=== PATIENT | female | born 1960 | race Caucasian/White ===

== ENCOUNTER 2017-10-14 07:04 | Day surgery (SDC) | payer BC, SELFPAY ==
[2017-10-10 15:36] VITALS: BMI 25.3
[2017-10-14 07:28] VITALS: BP 135/86; PULSE 98; RESP 18; TEMP 36.9; O2SAT 97
[2017-10-14 08:06] VITALS: O2SAT 97
--- NOTE | 2017-10-14 08:23 | P.PCN_ITS ---
[facility] Procedure Note Procedure Note:: Colonoscopy Procedure Report: Colonoscopy with cold snare polypectomy Endoscopist: Joseph Petty II, MD Referring physician: Mukul Shepard MD Date of Procedure: October 14, 2017 Equipment: Olympus 180 variable stiffness pediatric colonoscope Sedation: MAC sedation Indication: Mrs. Sibley is a 57-year-old female who is here for follow-up screening/surveillance colonoscopy. Her last colonoscopy was 8-10 years ago and she does have a history of colon polyps. She does have a history of irritable bowel syndrome and has some bowel irregularity and occasional abdominal crampy discomfort. She reports no rectal bleeding, abdominal pain or weight loss. She does state that her maternal aunt had colon cancer. Procedure: Prior to the procedure, a history and physical exam was performed, and patient' s medications and allergies were reviewed. The risks, benefits and alternatives of the sedation and procedure were discussed with the patient. All questions were answered and informed consent was obtained. The patient was brought to the procedure room. Patient identification and proposed procedure were verified by the physician and the nurse. The patient was placed in a left lateral decubitus position and the scope was passed under direct vision. Throughout the procedure, the patient's blood pressure, pulse, and oxygen saturations were monitored continuously. The colonoscopy was accomplished without difficulty. The patient tolerated the procedure well. Findings: On digital rectal examination there was normal rectal tone. There were no external hemorrhoids. The colonoscope was introduced through the anal canal to the rectum and advanced to the cecum. The ileocecal valve and appendiceal orifice were identified. The scope was advanced a short distance into the ileum which appeared grossly normal. The scope was then withdrawn into the colon. The cecum, ascending, transverse, descending, sigmoid and rectum were grossly normal. There was a single 6 mm polyp in the descending colon removed cold snare polypectomy. There were no mucosal abnormalities identified. Upon retroflexion within the rectum there were grade 1 internal hemorrhoids. Impression: 1. Descending colon polyp 2. Grade 1 internal hemorrhoids Plan: I will follow up the polyp pathology and recommend repeat colonoscopy again in 5 years based upon the polyp histology. I would encourage dietary measures, probiotic and fiber bulk supplementation on a long-term daily maintenance basis.
[2017-10-14 08:25] VITALS: BP 111/71; PULSE 87; RESP 18; TEMP 36.8; O2SAT 98
[2017-10-14 08:35] VITALS: BP 112/73; PULSE 73; RESP 18; TEMP 36.8; O2SAT 97
[2017-10-14 08:45] VITALS: BP 127/80; PULSE 69; RESP 20; TEMP 36.8; O2SAT 97
[2017-10-14 09:05] VITALS: BP 118/66; PULSE 75; RESP 20; TEMP 36.8; O2SAT 99
--- NOTE | 2017-10-14 15:07 | P.PN_ITS ---
[facility] Anesthesia Checklist - Structural Data Admitted From: Home Planned Operative Procedure/s: colonoscopy Consent for Planned Operative Procedure(s) Verified: Yes - Airway Assessment C-Spine Mobility Assessed: Yes TMJ Mobility Assessed: Yes Dentition: Good Dentition - Neurological Assessment Level of Consciousness: Awake, Alert, Appropriate - Anesthesia Plan Anesthesia Risk discussed: Yes Anesthesia Plan: Verified ASA Class: II Anesthesia Type: MAC [facility] Anesthesia HX I have reviewed the patient's past medical history: Yes Medical History: Reports:: Anxiety, Hypertension Denies:: Diabetes Mellitus Type 1, Diabetes Mellitus Type 2, Internal Pacemaker, Lung Disease, Seizures Other Surgeries: No: Pacemaker Amputation: No Fractures: No *Family Hx:: Stroke, Asthma, Diabetes, Heart Attack, Hypertension, Coronary Artery Disease, Cancer
== END 2017-10-14 09:05 | disposition home or self-care (01) ==
LOC: OUTP 07:06
PROVIDERS: Family Provider Family Medicine; PCP Family Medicine; Visit Provider Internal Medicine Gastroenterology
PROC: 0DJD8ZZ Inspection of Lower Intestinal Tract, Via Natural or Artificial Opening Endoscopic (ICD-10-PCS; CPT 45378; principal; 2017-10-14 08:00)
DX: Z12.11 Encounter for screening for malignant neoplasm of colon (principal); K63.5 Polyp of colon; K64.0 First degree hemorrhoids; Z86.010 Personal history of colon polyps
CPT/HCPCS: 45385

== ENCOUNTER → 2018-02-03 10:53 | Outpatient (CLI) | payer BC, SELFPAY ==
--- NOTE | 2018-02-03 10:55 | MM_ITS ---
MM Dig screening mamm BI w/CAD ORDERING PHYSICIAN : Vidal Zarate MD PATIENT AGE: 58 years GENDER: Female COMPARISON: January 2017 in July 2015. Also 2014 exam INDICATION: ITS.REASON: screening mammogram TECHNIQUE: Standard CC and MLO images were obtained. R2 CAD reviewed. FINDINGS: . Moderate breast density RIGHT BREAST: Density at superior breast labeled A appears stable since 2011 MLO view . I suspect this resides at the lateral breast on cc view is been seen dating back to 2013 On the cc view there is a area of density labeled B on which is slightly more evident and slightly more prominent than on prior 2016 & 2013. This is at the the deep central breast just medial to mid axis. This measures 12 mm size.. A few scattered faint calcifications seen here as well. Since it is slightly more evident I would suggest patient return for spot views & ultrasound of the breast to further evaluate this and other features mentioned. Vague low-density area labeled C just posterior to this measures 10 mm size. I see there is scattered small cystic areas in the right breast on the 2015 study this I suspect there may be some additional cyst of accounting for these slightly more evident areas today LEFT BREAST:Stable no new findings. . Relative density at the inferior retroareolar region is stable with no new findings. ----IMPRESSION: 1. Right breast. Scattered areas of density at the right breast, some of which more evident than previous studies. Recommend additional spot views and ultrasound Right Breast to further evaluate 2. Left breast stable with no new areas of concern BI-RADS Category: 0 Need Additional Imaging Evaluaiton. RECOMMENDED FOLLOW-UP: IMM - IMMEDIATE FOLLOW-UP RECOMMENDED Spot views right breast most evident important more evident density labeled B and C with ultrasound right breast (A letter has been sent to the patient regarding results of the study.)
== END ==
PROVIDERS: Family Provider Family Medicine; PCP Family Medicine; Visit Provider Obstetrics & Gynecology
DX: Z12.31 Encounter for screening mammogram for malignant neoplasm of breast (principal)
CPT/HCPCS: 77067

== ENCOUNTER → 2018-02-13 12:50 | Outpatient (CLI) | payer BC, SELFPAY ==
--- NOTE | 2018-02-13 | US_ITS ---
MM Dig mamm DX unilat RT CAD, US breast RT complete INDICATION: Follow-up abnormal mammogram ORDERING PHYSICIAN: Vidal Zarate MD PATIENT AGE: 58 years COMPARISON: 02/03/2018, 01/27/2017, 01/26/2016, 08/08/2015, 05/23/2014 TECHNIQUE: Problem solving views performed along with right breast ultrasound. FINDINGS: There is average to dense fibroglandular tissue. Asymmetric density is noted in the upper and medial aspect of the right breast. Show some persistent asymmetric density in the upper inner aspect of the right breast. Focal spot compression view however shows this area to appear to compress out as fibroglandular tissue. Also this appears to been present dating back to 05/23/2014 and a somewhat more prominent appearance on the most recent exams probably related to fibroglandular tissue. Right breast ultrasound: COMPARISON is made to 01/26/2016. There are some dilated ducts at 7:00. Small nodes are present in the axilla. No discrete solid or cystic lesion evident. IMPRESSION: Asymmetric density in the upper inner right breast felt to be related to fibroglandular tissue. No suspicious mass apparent. Recommend 6 month mammographic and sonographic follow-up of the right breast BI-RADS Category: 3 Benign Finding Short Term Follow-up RECOMMENDED FOLLOW-UP: 6M - 6 MONTH FOLLOW-UP (A letter has been sent to the patient regarding results of the study.)
== END ==
PROVIDERS: Family Provider Family Medicine; PCP Family Medicine; Visit Provider Obstetrics & Gynecology
DX: R92.8 Other abnormal and inconclusive findings on diagnostic imaging of breast (principal)
CPT/HCPCS: 76641; 77065

== ENCOUNTER → 2019-01-22 14:50 | Outpatient (CLI) | payer OTHER, SELFPAY ==
--- NOTE | 2019-01-22 14:57 | XR_ITS ---
XR hand LT min 3V HISTORY: Pain laceration the third fourth and fifth fingers ITS.REASON: LT HAND ABRASION,INFECTION OF THE SKIN ORDERING PHYSICIAN: Radha Vazquez APRN PATIENT AGE: 59 years COMPARISON: None FINDINGS: No fracture or dislocation is evident. 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 No radio opaque foreign body. IMPRESSION: No acute finding
== END ==
PROVIDERS: PCP Family Medicine; Visit Provider Nurse Practitioner
DX: S60.512A Abrasion of left hand, initial encounter (principal); L08.9 Local infection of the skin and subcutaneous tissue, unspecified
CPT/HCPCS: 73130

== ENCOUNTER → 2019-02-06 08:21 | Outpatient (CLI) | payer OTHER, SELFPAY ==
--- NOTE | 2019-02-06 08:22 | MM_ITS ---
MM Dig screening mamm BI w/CAD CAD Screening COMPARISON: Diagnostic right mammogram with CAD 02/13/2018 and digital bilateral mammograms with CAD 02/03/2018 INDICATION: There is no personal or family history of breast cancer. There has been a previous biopsy right breast for benign disease. TECHNIQUE: Standard CC and MLO images were obtained. R2 CAD reviewed. FINDINGS: Scattered diffuse fibroglandular densities are seen throughout both breasts. The possible asymmetric density seen on the previous right mammogram February 2018 is less prominent on today's study and likely is asymmetric glandular tissue. There are no suspicious microcalcifications. IMPRESSION: Moderate diffuse breast density with no suspicious lesion seen BI-RADS Category: 1 Negative RECOMMENDED FOLLOW-UP: 1YR - 1 YEAR FOLLOW-UP (A letter has been sent to the patient regarding results of the study.)
== END ==
PROVIDERS: PCP Family Medicine; Visit Provider Obstetrics & Gynecology
DX: Z12.31 Encounter for screening mammogram for malignant neoplasm of breast (principal)
CPT/HCPCS: 77067

== ENCOUNTER → 2020-01-22 15:11 | Outpatient (CLI) | payer OTHER, SELFPAY ==
[2020-01-22 20:06] LABS: Coronavirus 19 IgG Antibody Negative (Negative); Coronavirus 19 IgM Antibody Negative (Negative)
== END ==
PROVIDERS: Visit Provider Obstetrics & Gynecology
DX: Z03.818 Encounter for observation for suspected exposure to other biological agents ruled out (principal)
CPT/HCPCS: 36415; 86328

== ENCOUNTER → 2020-02-15 08:57 | Outpatient (CLI) | payer BC, SELFPAY ==
--- NOTE | 2020-02-15 08:57 | MM_ITS ---
PROCEDURE: MM DIG SCREENING MAMM BI W/CAD Digital Breast Tomosynthesis Included CLINICAL INDICATION: Routine Screening Mammogram There is no personal or family history of breast cancer. The patient currently is on estrogen. COMPARISON: MG SCBI MM Dig screening mamm BI w/CAD from 02/03/2018 MG DXRT MM Dig mamm DX unilat RT CAD from 02/13/2018 MG DIG MAMM-SCREEN CHETAN from 02/06/2019 TECHNIQUE: Standard CC and MLO images and 3D Tomosynthesis was obtained. R2 CAD reviewed. FINDINGS: Moderate diffuse fibroglandular densities are seen throughout both breast. Glandular elements are slightly more prominent upper outer quadrant right breast as noted previously. There is no new or suspicious lesion in either breast and no suspicious microcalcifications. IMPRESSION: Moderate diffuse breast density with no suspicious lesions seen BI-RAD Category: 1 Negative FOLLOW-UP: 1YR 1 Year Follow-up (A letter has been sent to the patient regarding results of the study.) Dictated Dr. Braydon Smith MD 02/15/2020 14:21 Dr. Braydon Kirkland MD in [place] 02/15/2020 14:21
== END ==
PROVIDERS: PCP Family Medicine; Visit Provider Obstetrics & Gynecology
DX: Z12.31 Encounter for screening mammogram for malignant neoplasm of breast (principal)
CPT/HCPCS: 77063; 77067

== ENCOUNTER → 2021-02-16 08:02 | Outpatient (CLI) | payer BC, SELFPAY ==
--- NOTE | 2021-02-16 08:02 | MM_ITS ---
PROCEDURE: MM DIG SCREENING MAMM BI W/CAD Digital Breast Tomosynthesis Included CLINICAL INDICATION: screening COMPARISON: MG DXRT MM Dig mamm DX unilat RT CAD from 02/13/2018 MG MM DIG SCREENING MAMM BI W/CAD from 02/06/2019 MG MM DIG SCREENING MAMM BI W/CAD from 02/15/2020 TECHNIQUE: Standard CC and MLO images and 3D Tomosynthesis was obtained. R2 CAD reviewed. FINDINGS: Average fibroglandular tissue. Faint cluster of calcification noted in the outer left breast and medial left breast. Spot compression Mag views suggested. Also suggest straight mL view. Nodular density is present in the central aspect of the left breast central 1/3 in the retroareolar region measuring 4 mm. Compression view and ultrasound suggested. The right breast has an unremarkable appearance. IMPRESSION: Indeterminate left breast nodule and calcifications. Additional images recommended BI-RAD Category: 0 Need Additional Imaging Evaluation FOLLOW-UP: IMM Immediate Follow-up Recommended (A letter has been sent to the patient regarding results of the study.) Dictated by: Nader Nicholson MD 02/24/2021 18:07 Nader Nicholson MD in [place] 02/24/2021 18:07
== END ==
PROVIDERS: PCP Family Medicine; Visit Provider Obstetrics & Gynecology
DX: Z12.31 Encounter for screening mammogram for malignant neoplasm of breast (principal)
CPT/HCPCS: 77063; 77067

== ENCOUNTER → 2021-03-10 14:32 | Outpatient (CLI) | payer BC, SELFPAY ==
--- NOTE | 2021-03-10 14:32 | US_ITS ---
PROCEDURE: MM DIG MAMM DX UNILAT LT CAD Digital Breast Tomosynthesis Included Left breast ultrasound complete CLINICAL INDICATION: Left breast nodule COMPARISON: MG MM DIG SCREENING MAMM BI W/CAD from 02/06/2019 MG MM DIG SCREENING MAMM BI W/CAD from 02/15/2020 MG MM DIG SCREENING MAMM BI W/CAD from 02/16/2021 US US BREAST LT COMPLETE from 03/10/2021 TECHNIQUE: Standard CC and MLO images and 3D Tomosynthesis was obtained. R2 CAD reviewed. FINDINGS: A cluster of indeterminate calcifications are present in the lower inner aspect of the left breast. Biopsy suggested by the stereotactic approach.. The cluster of calcifications in the outer aspect of the left breast appear probably benign and six-month follow-up is suggested. The nodular density in the central aspect of the left breast has a benign appearance on the spot compression views measuring approximately 4 mm. Left breast ultrasound at 2 o'clock there is a 3 mm hypoechoic nodule which could correspond to the mammographic abnormality. Probably benign. At 3 o'clock a 2 mm hypoechoic nodule. No suspicious sonographic nodules apparent IMPRESSION: Suspicious cluster of calcifications in the lower inner left breast. Suggest stereotactic biopsy. Probably benign calcifications laterally and probably benign nodule central aspect of the left breast. Recommend six-month follow-up. BI-RAD Category: 4 Suspicious Abnormality-Biopsy Considered FOLLOW-UP: BIO Biopsy Recommended (A letter has been sent to the patient regarding results of the study.) Dictated by: Nader Nicholson MD 03/18/2021 14:51 Nader Nicholson MD in [place] 03/18/2021 14:51
== END ==
PROVIDERS: PCP Family Medicine; Visit Provider Obstetrics & Gynecology
DX: R92.8 Other abnormal and inconclusive findings on diagnostic imaging of breast (principal)
CPT/HCPCS: 76641; 77061; 77065; G0279

== ENCOUNTER → 2021-03-31 09:39 | Outpatient (CLI) | payer BC, SELFPAY ==
--- NOTE | 2021-03-31 09:39 | MM_ITS ---
PROCEDURE: MM STEREOTACTIC LOC LT MM CLIP PLACEMENT MM SURGICAL SPECIMEN 1. MM SURGICAL SPECIMEN 2. CLINICAL INDICATION: abnormal mamm Suspicious calcifications left breast lower inner aspect TECHNIQUE: Informed consent was obtained and time-out procedure performed. The patient was given 1 mg of Xanax, Lortab 5 mg, and analgesia and minor sedation. The patient was placed on the stereotactic table and the abnormality was localized in the most appropriate projection from the superior approach. The breast was prepped in the routine manner, with sterile prep and the overlying skin anesthetized. A 3 to 4 mm skin incision was performed and the 9 gauge sorus vacuum-assisted core biopsy needle was advanced to the region of the calcification. Pre- and post fire images were obtained. After adequate positioning relative to the calcifications was ensured, multiple biopsies were obtained in the region of the calcifications specifically. Calcifications however were not readily apparent on the specimen radiograph. Following this the patient was repositioned and calcifications were localized from the inferior approach and similar technique performed for biopsy. Calcifications were present on this specimen radiograph. The core biopsies obtained were sent for specimen mammography. After the calcifications were indeed identified on the specimen mammogram, the procedure was terminated. The patient tolerated the procedure well without complications. Routine follow-up phone call to patient is to be performed as well. A tiny titanium nonferromagnetic MicroMark was positioned through the mammotome needle from both the superior pro Walters the inferior broach. Into the biopsy site. Pathology: Inferior approach: Benign breast parenchyma with fibrocystic changes and associated microcalcifications. Negative for atypia, DCIS or invasive carcinoma. Pathology: Superior approach: Proliferative fibrocystic changes with ductal hyperplasia and fat necrosis with rare microcalcifications. Negative for in situ and invasive malignancy IMPRESSION: Uneventful stereotactic directed biopsy of the left breast with microcalcifications biopsied negative for atypia or malignancy. SPECIMEN RADIOGRAPH: Superior pro chin specimen radiograph did not demonstrate any definite microcalcifications. Specimen radiograph #2. From inferior approach demonstrated microcalcifications of interest. IMPRESSION: Successful removal of described breast calcifications. BREAST MAMMOGRAM: Compared to the prior study, the previously noted calcification in the lower inner left breast have been removed. A small MicroMark clip was inserted into the region of the calcifications. There is evidence of soft tissue changes in the region of the biopsy was soft tissue gas and edema. 1. Adequate placement of the MicroMark clip postbiopsy. 2. Postbiopsy changes within the breast. 3. Suggest six-month mammographic follow-up per routine protocol Dictated by: Nader Nicholson MD 04/03/2021 09:28 Nader Nicholson MD in [place] 04/03/2021 09:28
== END ==
PROVIDERS: PCP Family Medicine; Visit Provider Obstetrics & Gynecology
DX: R92.8 Other abnormal and inconclusive findings on diagnostic imaging of breast (principal)
CPT/HCPCS: 19081; 76098; 77065

== ENCOUNTER → 2021-07-29 10:35 | Outpatient (CLI) | payer BC, SELFPAY | PROVIDERS: Visit Provider Nurse Practitioner | DX: U07.1 COVID-19 (principal) | CPT/HCPCS: C9803; U0003; U0005 ==

== ENCOUNTER → 2022-02-17 08:18 | Outpatient (CLI) | payer BC, SELFPAY ==
--- NOTE | 2022-02-17 08:19 | MM_ITS ---
PROCEDURE INFORMATION: Exam: MG Bilateral Screening 3D Mammography Exam date and time: 02/17/2022 8:33 AM Age: 62 years old Clinical indication: Screening mammogram. TECHNIQUE: Imaging protocol: Bilateral Screening tomosynthesis and 2D mammography including computer-aided detection (CAD) when performed. COMPARISON: 1. MG MM SURGICAL SPECIMEN LT 03/31/2021 11:03 AM 2. MG DMSB DIGITAL MAMM-SCREEN BILATERAL 07/06/2010 2:44 PM 3. MG DIGMAMMS MAMMOGRAM SCREEN-PATIENT [employer] N/C 01/16/2008 3:18 PM FINDINGS: MAMMOGRAPHY: Breast composition: The breast is heterogeneously dense, which may obscure small masses. Mass: None. Architectural distortion: No new or suspicious architectural distortion. Calcifications: No new or suspicious calcifications are present Asymmetric density: No new or suspicious asymmetric density is present Skin thickening: None. Axillary adenopathy: None. IMPRESSION: No mammographic evidence of malignancy. Recommend annual screening mammography unless otherwise clinically indicated. ASSESSMENT: BI-RADS category 1: Negative
== END ==
PROVIDERS: PCP Obstetrics & Gynecology; Visit Provider Obstetrics & Gynecology
DX: Z12.31 Encounter for screening mammogram for malignant neoplasm of breast (principal)
CPT/HCPCS: 77063; 77067

== ENCOUNTER → 2022-12-07 10:45 | Outpatient (POV) | payer BC, SELFPAY | PROVIDERS: Visit Provider Dermatology | DX: Z00.00 Encounter for general adult medical examination without abnormal findings (principal) ==

== ENCOUNTER → 2023-04-27 12:38 | Outpatient (CLI) | payer OTHER, SELFPAY | PROVIDERS: PCP Family Medicine; Visit Provider Internal Medicine Gastroenterology | DX: R19.7 Diarrhea, unspecified (principal); R14.0 Abdominal distension (gaseous) ==

== ENCOUNTER 2023-08-18 09:14 | Outpatient (CLI) | payer MEDICARE, SELFPAY ==
--- NOTE | 2023-08-18 09:21 | XR_ITS ---
FINAL REPORT CLINICAL HISTORY: LT KNEE PAIN FINDINGS: LEFT KNEE: Three views of the left knee were obtained. There is no acute fracture or dislocation. Visualized joint spaces are normally aligned. There is no joint effusion. Soft tissues are unremarkable. IMPRESSION: No acute bony abnormality. Reviewed, Interpreted and Dictated by Vladimir Reeves III, MD Transcribed by Ivy Newman Authenticated and [facility]
== END 2023-08-18 23:59 ==
LOC: RAD 09:16
PROVIDERS: PCP Family Medicine; Visit Provider Nurse Practitioner
DX: M25.562 Pain in left knee (principal)
CPT/HCPCS: 73562

== ENCOUNTER 2023-09-22 16:01 | Outpatient (CLI) | payer MEDICARE, SELFPAY ==
--- NOTE | 2023-09-22 16:04 | MR_ITS ---
FINAL REPORT CLINICAL HISTORY: KNEE PAIN. FELL ON KNEE FEB 7TH. LATERAL SIDED KNEE PAIN AND PAIN UNDER PATELLA. FINDINGS: Multiplanar MR imaging of the left knee was performed without contrast. The medial and lateral menisci are intact without evidence of meniscal tear. The anterior and posterior cruciate ligaments are intact. The medial collateral ligament and lateral ligamentous complex are intact. The patellar and quadriceps tendons are intact. There is no evidence of fracture. There is moderate patellar chondromalacia. There is prepatellar fluid which may represent a prepatellar hematoma or bursitis. No significant joint effusion is seen. The musculature is intact. There is a serpiginous structure medial to the distal femur measuring at least 5 cm in length. Differential diagnosis includes AVM or venous varicosities. IMPRESSION: Prepatellar fluid which may represent a prepatellar hematoma or bursitis. Serpiginous structure medial to the distal femur with differential including AVM or venous varicosities. Reviewed, Interpreted and Dictated by Vladimir Reeves III, MD Transcribed by Ivy Newman Authenticated and [facility]
== END 2023-09-22 23:59 ==
LOC: RAD 16:01
PROVIDERS: PCP Nurse Practitioner; Visit Provider Nurse Practitioner
DX: M25.562 Pain in left knee (principal)
CPT/HCPCS: 73721

== ENCOUNTER 2023-11-30 16:59 | Outpatient (CLI) | payer MEDICARE, SELFPAY ==
--- NOTE | 2023-11-30 17:03 | MM_ITS ---
PROCEDURE INFORMATION: Exam: MG Bilateral Screening 3D Mammography Exam date and time: 11/30/2023 4:49 PM Age: 63 years old Clinical indication: Screening mammogram TECHNIQUE: Imaging protocol: Bilateral Screening tomosynthesis and 2D mammography including computer-aided detection (CAD) when performed. COMPARISON: 1. MG MM DIG SCREENING MAMM BI W/CAD 02/17/2022 8:33 AM 2. MG MM CLIP PLACEMENT LT 03/31/2021 12:30 PM 3. MG MM SURGICAL SPECIMEN LT 03/31/2021 11:03 AM 4. MG DMSB DIGITAL MAMM-SCREEN BILATERAL 07/06/2010 2:44 PM FINDINGS: MAMMOGRAPHY: Breast composition: The breast is heterogeneously dense, which may obscure small masses. Mass: None. Architectural distortion: No new or suspicious architectural distortion. Calcifications: No new or suspicious calcifications are present Asymmetric density: No new or suspicious asymmetric density is present Skin thickening: None. Axillary adenopathy: None. IMPRESSION: No mammographic evidence of malignancy. Recommend annual screening mammography unless otherwise clinically indicated. ASSESSMENT: BI-RADS category 1: Negative.
== END 2023-11-30 23:59 | disposition home or self-care (01) ==
LOC: RAD 16:59
PROVIDERS: PCP Nurse Practitioner; Visit Provider Nurse Practitioner
DX: Z12.31 Encounter for screening mammogram for malignant neoplasm of breast (principal)
CPT/HCPCS: 77063; 77067

== ENCOUNTER 2023-12-13 17:00 | Outpatient (RCR) | payer OTHER, SELFPAY | END 2023-12-13 18:00 | disposition home or self-care (01) | LOC: PT 17:00 | PROVIDERS: Visit Provider Orthopaedic Surgery | DX: M25.562 Pain in left knee (principal) | CPT/HCPCS: 97110; 97163; 97530 ==

== ENCOUNTER 2024-01-04 09:16 | Outpatient (CLI) | payer MEDICARE, SELFPAY ==
--- NOTE | 2024-01-04 09:17 | CT_ITS ---
APPROVED REPORT Blood Bank Laboratory Technologist: CLINICAL INDICATION Chest Pain TECHNIQUE Image Acquisition: A 128 slice MDCT scanner ([employer] View) was used for data acquisition. A noncontrast coronary calcium scan was performed. A CT attenuation threshold of 130 Hounsfield units (HU) was used for the detection of calcium in contiguous voxels of 1 sq mm in area to be counted as individual lesions. Bolus tracking in the ascending aorta with a threshold of 180 HU was performed. Immediately afterwards, ECG synchronized cardiac CT was then performed from the cardiac base to apex using retrospective gating with ECG tube current modulation. A total of 85 mL of Isovue 370 mg/mL contrast medium was administered at 5 mL/sec followed by a saline flush using a biphasic injection protocol. A tube voltage of 120 KVp was used. The patient received the following medications prior to the cardiac CT. 50 mg of oral metoprolol 15 mg of oral ivabradine 0.8 mg of sublingual nitroglycerin The average heart rate at the time of acquisition was 51 bpm and regular. Image Reconstruction Transaxial images were reconstructed at 0.67 mm slide thickness. Data was reviewed interactively on an advanced workstation capable of 2 and 3-dimensional displays in all conventional reconstruction formats, including multiplanar reformations, maximum intensity projections, curved multiplanar reformations, and volume rendered reconstructions. When applicable, selected routine images describing the relevant coronary anatomy and pathology were saved and sent to PACS. Complications None Technical Quality Overall image quality was good. Coronary artery opacification was adequate. Total DLP (Dose-Length Product) is 1616.2 mGy-cm. The reported value represents the total of one or more individual components during the CT acquisition of this date and at this time, and as such, the same value may appear in more than one CT report depending on the interpreting/reporting physicians. COMPARISON None FINDINGS CT Coronary Calcium Scoring LMA (Left Main Artery) = 0 LAD (Left Anterior Descending) = 0 LCX (Left Coronary Circumflex) = 0 RCA (Right Coronary Artery) = 0 Total Calcium Score = 0 using the AJ-130 method. The interpretation of the calcium heart score is based on the following continuum*: 0 = no calcified plaque detected (risk of coronary artery disease is very low ??? less than 5%) 1-10 = calcium detected in extremely minimal levels (risk of coronary diseases is still low ??? less than 10%) 11-100 = mild levels of plaque detected with certainty (mild or minimal narrowing of heart arteries is likely) 101-400 = definite,at least moderate levels of plaque detected (relatively high risk of a heart attack within 3-5 years) >401-999 = extensive levels of plaque detected (high risk of heart attack, high levels of vascular disease are present, high likelihood of at least one significant coronary narrowing) *The calcium heart score quantifies the burden of coronary calcification/plaque in the coronary arteries. The calcium heart score is not able to evaluate the presence or burden of non-calcified (i.e. soft) plaque. There is no identifiable calcification in the aortic valve, mitral annulus or mitral valve, pericardium, or myocardium. Coronary CT Angiography The coronary arterial system is right dominant. Quantitative Stenosis Grading: Left Main (LM): The left main originates normally from the left sinus of Valsalva. The LM bifurcates into the left anterior descending artery and left circumflex artery. The LM is patent with no evidence of atherosclerosis. Left Anterior Descending (LAD) and Diagonal Branches: The LAD gives off 2 diagonal branch(es). The LAD and its branches are patent with no evidence of atherosclerosis. There is no evidence of LAD-myocardial bridge. Left Circumflex (LCX) and Obtuse Marginals (OM): The LCX gives off 2 Obtuse Marginal (OM) branch(es). The LCX and its branches are patent with no evidence of atherosclerosis. Right Coronary Artery (RCA): The RCA originates normally from the right sinus of Valsalva. The RCA gives off a posterior descending artery (PDA) and posterolateral (PL) branches. The RCA and its branches are patent with no evidence of atherosclerosis. Non-Coronary Cardiac Findings: Analysis of the left ventricular (LV) structure and function was performed after 3-D reconstruction of the LV from axial images, with user-corrected automatic contouring for assessment of LV volumes and user-defined reconstruction from oblique planes for measurement of 3-D cardiac structure and function. -The left ventricle systolic function is normal. -There is no left atrial appendage filling defect. Two right pulmonary veins and two left pulmonary veins drain normally into the left atrium. -No pericardial thickening or calcification. -Central and branch pulmonary arteries in the [id number] are unremarkable. -Thoracic aorta within the visualized thoracic aortic-branches in the [id number] is unremarkable. Extracardiac Structures Calcified mediastinal granulomas are incidentally noted. Clinical correlation with recent or new CT chest is recommended. IMPRESSION -Absence of coronary calcification with an Agatston score = 0 using the AJ-130 method. -No evidence of significant flow-limiting atherosclerosis of the coronary arteries. -No evidence of coronary anomalies or myocardial bridges. -CAD-RADS 0. Management recommendations per ACC/AHA guidelines*, as clinically appropriate. -Calcified mediastinal granulomas are incidentally noted. Clinical correlation with recent or new CT chest is recommended. *Recommendations: CAD RADS 0: Reassurance. Consider non-atherosclerotic causes of chest pain. CAD RADS 1: Consider non-atherosclerotic causes of chest pain. Consider preventive therapy and risk factor modification. CAD RADS 2: Consider non-atherosclerotic causes of chest pain. Consider preventive therapy and risk factor modification, particularly for patients with nonobstructive plaque in multiple segments. CAD RADS 3: Consider further functional testing. Consider symptom-guided anti-ischemic and preventive pharmacotherapy as well as risk factor modification per published guideline statements. CAD RADS 4A: Consider further functional testing or invasive coronary angiography with revascularization per published guideline statements. Consider symptom-guided anti-ischemic and preventive pharmacotherapy as well as risk factor modification per published guideline statements. CAD RADS 4B: Invasive coronary angiography recommended with revascularization per published guideline statements. Consider symptom-guided anti-ischemic and preventive pharmacotherapy as well as risk factor modification per published guideline statements. CAD RADS 5: Consider invasive angiography and/or viability assessment with revascularization per published guideline statements. Consider symptom-guided anti-ischemic and preventive pharmacotherapy as well as risk factor modification per published guideline statements. CRITICAL RESULT None COMMUNICATION Per this written report The coronary and cardiac findings of this CCTA were reviewed, reported, and signed by Scotty Manuel MD (Logistics Center Manager) Conclusion Electronically signed by : Maryam Manuel MD 01/09/2024 13:02:57
[2024-01-04 09:34] VITALS: BMI 25.7
[2024-01-04] MEDS: METOPROLOL TARTRATE 50MG TABLET PO (09:45)
[2024-01-04] MEDS: IVABRADINE HCL 7.5MG TABLET PO (09:45)
[2024-01-04 09:52] LABS: Chloride 103 mmol/L (98-107); Sodium 138 mmol/L (136-145)
[2024-01-04 09:53] LABS: Potassium 4.1 mmoL/L (3.5-5.1)
[2024-01-04 09:56] LABS: Anion Gap 11.1 mEq/L (5-15); Blood Urea Nitrogen 15 mg/dl (7-17); Calcium 9.4 mg/dl (8.4-10.2); Carbon Dioxide 28 mmol/L (22.0-30.0); Creatinine Clearance Estimated 58 mL/min (50-200); Estimated Glomerular Filt Rate 72 ml/min (>60); GFR (African American) 87 ML/MIN (>60); Glucose 109 mg/dl (74-100)
[2024-01-04 10:35] VITALS: BP 138/77; PULSE 58; RESP 18; O2SAT 100
[2024-01-04] MEDS: NITROGLYCERIN 0.4MG SL TABLET SL (10:36)
[2024-01-04 10:38] VITALS: BP 120/72; PULSE 57; RESP 18; O2SAT 100
[2024-01-04 10:41] VITALS: BP 116/77; PULSE 56; RESP 18; O2SAT 100
[2024-01-04 10:44] VITALS: BP 120/70; PULSE 57; RESP 18; O2SAT 100
[2024-01-04 10:47] VITALS: BP 122/70; PULSE 55; RESP 18; O2SAT 100
[2024-01-04] MEDS: SODIUM CHLORIDE 0.9% 10ML SYR (RAD ONLY) 10 ML IV (10:53)
[2024-01-04] MEDS: 0.9 % SODIUM CHLORIDE 50 ML VIAL IV (10:53)
[2024-01-04] MEDS: IOPAMIDOL-370 (76%);100ML BOTTLE 85 ML IV (10:54)
== END 2024-01-04 11:06 | disposition home or self-care (01) ==
PROVIDERS: PCP Nurse Practitioner; Visit Provider Nurse Practitioner Family
DX: R00.0 Tachycardia, unspecified (principal); R00.2 Palpitations; R06.09 Other forms of dyspnea; R07.9 Chest pain, unspecified; R94.31 Abnormal electrocardiogram [ECG] [EKG]
CPT/HCPCS: 75574; 80048; 93225; 93227; Q9967

== ENCOUNTER 2024-01-06 13:20 | Outpatient (CLI) | payer MEDICARE, SELFPAY ==
--- OUTSIDE RECORDS SUMMARY | 2024-01-06 13:24 | XMS_ITS | Clinical Summary ---
Author Name Unknown Address [address] [place] [address] [place] [address] Phone Organization [facility] [place] [facility] Address [address] [address] Phone Care Team Providers Care Athletic Shoe Designer Name Role Phone Vicenta Rizo PA-C Unavailable [phone] SALO ESCAMILLA MD Unavailable [phone] Reason for Visit and Chief Complaint Physician Specified Problems Includes: Problems addressed during this encounter and other active Problems Current Visit Onset Date Resolved Date Provider Ashkan tang Status Joint Pain in the Left Knee 10/25/2023 Tony Anderson MD Active Last Documented On 10:24AM ; [facility] Plan of Treatment Fall Risk Assessment: This patient has been identified as a fall risk. Balance/gait along with postural blood pressure, vision and home fall hazards have been assessed. Medications have been reviewed, and recommendations made with regard to contributing factors for future falls. Plan of care: Consideration of vitamin D supplementation along with balance and strength training with consideration for formal physical therapy has been discussed with the patient. - Last Documented On 10/25/2023 10:41AM ; [facility] [place] MRI SHOWS PREPATELLAR BURSITIS POSTTRAUMATIC OTHERWISE UNREMARKABLE RECOMMEND IONTOPHORESIS WITH PT AND STRENGTHENING PROGRAM FOR HIP CORE AND QUAD LOW-IMPACT WE WILL SEE HER BACK IN 6 WEEKS FOR FOLLOW UP - Last Documented On 10/25/2023 10:41AM ; [facility] [facility] Assessments Includes: Assessments from this encounter No Assessments Recorded Medical Equipment - Implanted Devices Includes: Current Devices No Medical Equipment Recorded Medications Includes: Medications discussed during this encounter and other current Medications New / Renewed during this visit Tony Anderson MD on 10/25/2023 dexAMETHasone Sodium Phospha te 4 MG/ML Injection Solution Provider: Tony Anderson MD 30 day supply: 30 mL, 0 refills Diagnosis: use as directed- to be used by physical therapy Pharmacy: [id number] [phone] , [place], [address] - Last Documented On 4 10:42AM By Tony Anderson ; [facility] Current Medications (continue as prescribed) Levothyroxine Sodium 100 MCG Oral Capsule 10/25/2023 Provider: Diagnosis: Last Documented On 4 10:25AM By Leny Valle ; [facility] [facility] Medications Administered Includes: Administered Medications from this encounter No Administered Medications Recorded Results Includes: Results discussed during this encounter No Results Recorded For Specified Dates History of Present Illness Includes: History of Present Illness from this encounter LUZ MARINA Sibley is a 63 year old female. - Symptoms grinding, locking, popping. - Allergy list reviewed - Problem list reviewed - Medication list reviewed - Previous history of new onset pain 08/17/2023 Injury is not work related or an automotive accident - Patient pain level from 1-10: 5 pain better: ice, rest pain worse: steps, squatting, prolonged bending of the knee, and pressure on the knee ? Yes, previous treatment. carolina perla Medications used for this condition: 2 MONTHS AGO TRAUMATIC FALL ANTERIOR ASPECT OF THE LEFT KNEE WITH SIGNIFICANT SWELLING AND PAIN PATIENT IS WAS RESTED AND [id number] MEDICATIONS BUT SOME IMPROVEMENT BUT NOT COMPLETE STILL HAS TROUBLE WITH ANTERIOR KNEE PAIN MRI WAS DONE FOR FURTHER EVALUATION SHE IS REFERRED TO US FOR FURTHER TREATMENT Social History Description Last Updated Caffeine use 10/25/2023 Last Documented On 4 10:41AM ; [facility] [facility] Exercising regularly 10/25/2023 Last Documented On 4 10:41AM ; [facility] [facility] No recent change in diet 10/25/2023 Last Documented On 4 10:41AM ; [facility] Not a current smoker. 10/25/2023 Last Documented On 4 10:41AM ; [facility] [facility] Not using alcohol former 10/25/2023 Last Documented On 4 10:41AM ; [facility] [facility] Not using drugs 10/25/2023 Last Documented On 4 10:41AM ; [facility] Smoking Status Unknown Procedures and Surgical History Includes: Procedures from this encounter Procedures Code Diagnosis Performing Provider Service L ocation Service Date an X-ray was performed 76496 Last Documented On 4 10:28AM ; [facility] an MRI was performed [id number] Last Documented On 4 10:28AM ; [facility] [facility] brace Last Documented On 4 10:28AM ; [facility] Surgical History Last Updated History of hysterectomy 10/25/2023 Last Documented On 4 10:41AM ; [facility] Medical History Includes: Medical History addressed during this encounter Description Last Updated History of Heartburn / Acid Reflux 10/24 Last Documented On 4 10:41AM ; [facility] History of Hypertension 10/25/2023 Last Documented On 4 10:41AM ; [facility] History of Thyroid Disease 10/25/2023 Last Documented On 4 10:41AM ; [facility] Recent immunization for flu 10/25/2023 Last Documented On 4 10:41AM ; [facility] Family History Includes: Family History addressed during this encounter Description Last Updated Family history of osteoporosis 4 Last Documented On 4 10:41AM ; [facility] Family history of systemic hypertension 10/25/2023 Last Documented On 4 10:41AM ; [facility] Fraternal history of systemic hypertensi on 10/25/2023 Last Documented On 4 10:41AM ; [facility] [facility] Maternal history of osteoporosis 024 Last Documented On 4 10:41AM ; [facility] Maternal history of systemic hypertensio n 10/25/2023 Last Documented On 4 10:41AM ; [facility] Paternal grandfather's history of system ic hypertension 10/25/2023 Last Documented On 4 10:41AM ; [facility] Sororal history of systemic hypertension 10/25/2023 Last Documented On 4 10:41AM ; [facility] Review of Systems Includes: Review of Systems from this encounter Systemic: Not feeling tired and no recent weight loss. Recent weight gain. Head: No headache and no sinus pain. Eyes: No vision problems. Cataracts and Glasses/Contacts. No Glaucoma. Otolaryngeal: No hearing loss. Tinnitus. Cardiovascular: No chest pain or discomfort. Palpitations and Hypertension. No High Cholesterol. Pulmonary: No daytime asthma symptoms and no chronic cough. No wheezing. Gastrointestinal: Heartburn. No abdominal pain. Indigestion. No Acid Reflux, no Peptic Ulcer, no GI Stomach Bleed, and no Ulcers. Endocrine: Hot flashes. No muscle weakness and no Diabetes. Hypothyroid. No Hyperthyroid. Hematologic: No easy bleeding, no tendency for easy bruising, and no Anemia. Musculoskeletal: No Arthritis. Lower back pain. No soft tissue swelling and no localized joint pain. Neurological: No dizziness, no convulsions, and no numbness. Psychological: Anxiety. No emotional lability, no depression, and no insomnia. Not crying for no reason. Skin: No dry skin. No Ulcers, no Scars, and no rash. Allergic and Immunologic: Complaint of seasonal allergic reaction. Mental Status Includes: Mental Status from this encounter Description Anxiety Functional Status Includes: Functional Status from this encounter No Functional Status Recorded Physical Exam Includes: Physical Exam from this encounter Allergies Includes: Active Allergies No Known Allergies Encounters Encounter Provider Location Date Check-In Time Check-Out Time Diagnosis Physician Specified Tony Anderson MD [facility] 10/25/19 24 10:16AM 10:45AM Insurance Includes: Active Insurance Policies Plan Name Member ID Group # Subscriber Relationship Effect allie Dates 1 - Medicare Part B [facility] [id number] Lyssa Sibley Self Clinical Notes Includes: Clinical Notes from this encounter * Progress note Date Encounter Last Documented by 10/25/2023 Physician Specified Evans ching on 10/25/2023; 10:41 AM, Tony Anderson MD; [facility] Active Problems & Conditions - Joint Pain in the Left Knee Subjective Have you ever tried physical therapy for this and how long and where? What injections have you tried for this pain? Last injection date? Have you had prior surgery on this area? What medications have you tried for this pain? Have you tried to lose weight? History of Present Illness Lyssa Sibley is a 63 year old female. - Symptoms grinding, locking, popping. - Allergy list reviewed - Problem list reviewed - Medication list reviewed - Previous history of new onset pain 08/17/2023 Injury is not work related or an automotive accident - Patient pain level from 1-10: 5 pain better: ice, rest pain worse: steps, squatting, prolonged bending of the knee, and pressure on the knee - Yes, previous treatment. carolina perla Medications used for this condition: 2 MONTHS AGO TRAUMATIC FALL ANTERIOR ASPECT OF THE LEFT KNEE WITH SIGNIFICANT SWELLING AND PAIN PATIENT IS WAS RESTED AND [id number] MEDICATIONS BUT SOME IMPROVEMENT BUT NOT COMPLETE STILL HAS TROUBLE WITH ANTERIOR KNEE PAIN MRI WAS DONE FOR FURTHER EVALUATION SHE IS REFERRED TO US FOR FURTHER TREATMENT Current Medication - Levothyroxine Sodium 100 MCG Oral Capsule take as directed 0 days, 0 refills Past Medical/Surgical History Reported: Immunization History: Recent immunization for flu. Diagnoses: Heartburn / Acid Reflux Thyroid Disease Hypertension Surgical: - Hysterectomy Social History Not a current smoker. Current diet: No recent change in diet. Caffeine use: Caffeine use. Alcohol: Not using alcohol former. Drug Use: Not using drugs. Habits: Exercising regularly. Allergies - No Known Allergies Family History Systemic hypertension Osteoporosis Maternal: Systemic hypertension Osteoporosis Paternal grandfather's: Systemic hypertension Fraternal: Systemic hypertension Sororal: Systemic hypertension Review Of Systems Systemic: Not feeling tired and no recent weight loss. Recent weight gain. Head: No headache and no sinus pain. Eyes: No vision problems. Cataracts and Glasses/Contacts. No Glaucoma. Otolaryngeal: No hearing loss. Tinnitus. Cardiovascular: No chest pain or discomfort. Palpitations and Hypertension. No High Cholesterol. Pulmonary: No daytime asthma symptoms and no chronic cough. No wheezing. Gastrointestinal: Heartburn. No abdominal pain. Indigestion. No Acid Reflux, no Peptic Ulcer, no GI Stomach Bleed, and no Ulcers. Endocrine: Hot flashes. No muscle weakness and no Diabetes. Hypothyroid. No Hyperthyroid. Hematologic: No easy bleeding, no tendency for easy bruising, and no Anemia. Musculoskeletal: No Arthritis. Lower back pain. No soft tissue swelling and no localized joint pain. Neurological: No dizziness, no convulsions, and no numbness. Psychological: Anxiety. No emotional lability, no depression, and no insomnia. Not crying for no reason. Skin: No dry skin. No Ulcers, no Scars, and no rash. Allergic and Immunologic: Complaint of seasonal allergic reaction. Physical Findings LEFT KNEE 1+ QUAD ATROPHY ANTERIOR PAIN OVER THE PREPATELLAR BURSA PATELLAR TRACKING IS NORMAL THERE IS NO HERNANDEZ'S SIGN NORMAL STABILITY ON VARUS VALGUS ANTERIOR POSTERIOR DRAWER TESTING MILD SWELLING EXTERNAL ARTICULAR ABOUT THE PARAPATELLAR SOFT TISSUES NOTED Previous Tests Imaging: X-Ray: An X-ray was performed. MRI Scan: An MRI was performed. Basic Management Procedures And Services: - Brace Plan StartCited - Other dexAMETHasone Sodium Phosphate 4 MG/ML mL use as directed- to be used by physical therapy, 30 days, 0 refills EndCited Fall Risk Assessment: This patient has been identified as a fall risk. Balance/gait along with postural blood pressure, vision and home fall hazards have been assessed. Medications have been reviewed, and recommendations made with regard to contributing factors for future falls. Plan of care: Consideration of vitamin D supplementation along with balance and strength training with consideration for formal physical therapy has been discussed with the patient. MRI SHOWS PREPATELLAR BURSITIS POSTTRAUMATIC OTHERWISE UNREMARKABLE RECOMMEND IONTOPHORESIS WITH PT AND STRENGTHENING PROGRAM FOR HIP CORE AND QUAD LOW-IMPACT WE WILL SEE HER BACK IN 6 WEEKS FOR FOLLOW UP Notes This dictation was done with voice recognition software and may contain errors and omissions. Care Team - SALO ESCAMILLA MD - LARD TUB WASHER
--- OUTSIDE RECORDS SUMMARY | 2024-01-06 13:24 | XMS_ITS ---
Author Name Unknown Address [address] [place] [address] [place] [address] Phone Organization [facility] Address [address] [place] [address] Phone Care Team Providers Care Web Production Designer Name Role Phone Vicenta Rizo PA-C Unavailable [phone] SALO ESCAMILLA MD Unavailable [phone] Problems Includes: Active, inactive, and resolved Problems All Visits Onset Date Resolved Date Provider Condition S tatus Joint Pain in the Left Knee 10/25/2023 Tony Anderson MD Active Last Documented On 4 10:24AM ; [facility] Plan of Treatment No Plan of Treatment Recorded Assessments Includes: Assessments for all patient encounters No Assessments Recorded Medical Equipment - Implanted Devices Includes: Current and historical Devices No Medical Equipment Recorded Medications Includes: Current and historical Medications Current Medications (continue as prescribed) Levothyroxine Sodium 100 MCG Oral Capsule 10/25/2023 Provider: Diagnosis: Last Documented On 4 10:25AM By [facility] Past Medications on file dexAMETHasone Sodium Phospha te 4 MG/ML Injection Solution 10/25/2023 - 11/24/2023 Provider: Tony urbano MD Diagnosis: use as directed- to be used by physical therapy Last Documented On 4 10:42AM By Tony [facility] Medications Administered Includes: Administered Medications in patient's chart No Administered Medications Recorded Results Includes: Results from 01/05/2023 through 01/06/2024 No Results Recorded For Specified Dates History of Present Illness History of Present Illness not supported for this document type No History of Present Illness Recorded Social History Description Last Updated Caffeine use 10/25/2023 Last Documented On 4 10:41AM ; [facility] Exercising regularly 10/25/2023 Last Documented On 4 10:41AM ; [facility] No recent change in diet 10/25/2023 Last Documented On 4 10:41AM ; [facility] Not a current smoker. 10/25/2023 Last Documented On 4 10:41AM ; [facility] Not using alcohol former 10/25/2023 Last Documented On 4 10:41AM ; [facility] Not using drugs 10/25/2023 Last Documented On 4 10:41AM ; [facility] Smoking Status Unknown Procedures and Surgical History Surgical History Last Updated History of hysterectomy 10/25/2023 Last Documented On 4 10:41AM ; [facility] Medical History Includes: Medical History in patient's chart Description Last Updated History of Heartburn / Acid Reflux 10/24 Last Documented On 4 10:41AM ; [facility] History of Hypertension 10/25/2023 Last Documented On 4 10:41AM ; [facility] History of Thyroid Disease 10/25/2023 Last Documented On 4 10:41AM ; [facility] Recent immunization for flu 10/25/2023 Last Documented On 4 10:41AM ; [facility] Family History Includes: Family History in patient's chart Description Last Updated Family history of osteoporosis 4 Last Documented On 4 10:41AM ; [facility] Family history of systemic hypertension 10/25/2023 Last Documented On 4 10:41AM ; [facility] Fraternal history of systemic hypertensi on 10/25/2023 Last Documented On 4 10:41AM ; [facility] Maternal history of osteoporosis 024 Last Documented On 4 10:41AM ; [facility] Maternal history of systemic hypertensio n 10/25/2023 Last Documented On 4 10:41AM ; [facility] Paternal grandfather's history of system ic hypertension 10/25/2023 Last Documented On 4 10:41AM ; [facility] Sororal history of systemic hypertension 10/25/2023 Last Documented On 4 10:41AM ; [facility] Review of Systems Review of Systems not supported for this document type No Review of Systems Recorded Mental Status Description Anxiety Functional Status No Functional Status Recorded Physical Exam Physical Exam not supported for this document type No Physical Exam Recorded Allergies Includes: Active, inactive, and resolved Allergies No Known Allergies Encounters Includes: Encounters from 01/05/2023 through 01/06/2024 Encounter Provider Location Date Check-In Time Check-Out Time Diagnosis Physician Specified Tony Anderson MD [facility] 10/25/19 24 10:16AM 10:45AM Insurance Includes: Active Insurance Policies Plan Name Member ID Group # Subscriber Relationship Effect allie Dates 1 - Medicare Part B [facility] [id number] Lyssa Sibley Self Clinical Notes Includes: Signed Clinical Notes starting from 06/24/2022 * Progress note Date Encounter Last Documented by 10/25/2023 Physician Specified Last documen jeane on 10/25/2023; 10:41 AM, Tony Anderson MD; [facility], [facility] Active Problems & Conditions - Joint Pain [...] AND PAIN PATIENT IS WAS RESTED AND [id number] MEDICATIONS BUT SOME IMPROVEMENT BUT NOT COMPLETE [...] Care Team - SALO ESCAMILLA MD - WORLD GEOGRAPHY TEACHER
--- OUTSIDE RECORDS SUMMARY | 2024-01-06 13:24 | XMS_ITS ---
Care Plan - [facility], [facility] Created on: January 06, 2024 Lyssa Sibley : 1960 Sex: Female Author Name Unknown Address [address] [place] [address] [place] [address] Phone Organization [facility] Address [address] [place] [address] Phone Care Team Providers Care Materials Intern Name Role Phone Vicenta Rizo PA-C Unavailable [phone] SALO ESCAMILLA MD Unavailable [phone]
== END 2024-01-06 23:59 | disposition home or self-care (01) ==
LOC: RT 13:22
PROVIDERS: PCP Nurse Practitioner; Visit Provider Nurse Practitioner Family
DX: R00.2 Palpitations (principal); R00.0 Tachycardia, unspecified
CPT/HCPCS: 93270

== ENCOUNTER 2024-01-23 16:01 | Outpatient (CLI) | payer MEDICARE, SELFPAY ==
--- NOTE | 2024-01-23 16:10 | XR_ITS ---
PROCEDURE INFORMATION: Exam: XR Right Knee Exam date and time: 01/23/2024 4:14 PM Age: 64 years old Clinical indication: Pain; Knee; Right; Additional info: Pain, bruising post falling through deck on Tuesday TECHNIQUE: Imaging protocol: Radiologic exam of the right knee. Views: 3 views. COMPARISON: No relevant prior studies available. FINDINGS: Bones/joints: Normal. No fracture evident Soft tissues: Normal. IMPRESSION: No acute findings.
== END 2024-01-23 23:59 | disposition home or self-care (01) ==
LOC: RAD 16:05
PROVIDERS: PCP Nurse Practitioner; Visit Provider Nurse Practitioner
DX: M25.561 Pain in right knee (principal); S89.91XA Unspecified injury of right lower leg, initial encounter; R60.9 Edema, unspecified
CPT/HCPCS: 73562

== ENCOUNTER 2024-01-24 14:22 | Outpatient (CLI) | payer MEDICARE, SELFPAY ==
--- NOTE | 2024-01-24 | CA_ITS ---
FINAL REPORT TECHNIQUE: Multiple transverse and longitudinal images were performed of the right femoral-popliteal deep venous system with augmentation and compression maneuvers. CLINICAL HISTORY: S/p fall with extensive bruising, swelling and tightness in right calf COMPARISON: None FINDINGS: Right lower extremity duplex ultrasound demonstrates normal flow in the deep venous system. There is no abnormal echogenicity to suggest thrombus. There is normal compression and augmentation. IMPRESSION: No evidence of right DVT. Reviewed, Interpreted and Dictated by Lesvia Little MD Transcribed by Michelle Edwards Authenticated and [facility]
== END 2024-01-24 23:59 | disposition home or self-care (01) ==
LOC: RT 14:25
PROVIDERS: PCP Nurse Practitioner; Visit Provider Nurse Practitioner
DX: M79.604 Pain in right leg (principal); R60.0 Localized edema; S89.91XA Unspecified injury of right lower leg, initial encounter
CPT/HCPCS: 93971

== ENCOUNTER 2024-02-02 10:08 | Outpatient (CLI) | payer MEDICARE, SELFPAY ==
--- NOTE | 2024-02-02 10:09 | CA_ITS ---
FINAL REPORT TECHNIQUE: Compression chisholm scale and Doppler evaluation CLINICAL HISTORY: PT FELL THRU DECK 2 WKS AGO,BRUISING,EDEMA RIGHT CALF/KNEE,CELLULITIS FINDINGS: Femoral and popliteal veins show normal compressibility and flow. Visualized portion of the calf veins are patent by Doppler exam. Incidental note is made of a complex fluid collection in the right calf measuring up to 3.6 cm. This is nonspecific but could represent hematoma. Abscess would also be in the differential. IMPRESSION: 1. No evidence of right lower extremity deep venous thrombosis 2. Complex fluid collection proximal medial right calf. Recommend imaging follow-up in 1-2 weeks. Authenticated and [facility]
== END 2024-02-02 23:59 | disposition home or self-care (01) ==
LOC: RT 10:08
PROVIDERS: PCP Nurse Practitioner; Visit Provider Nurse Practitioner
DX: I82.401 Acute embolism and thrombosis of unspecified deep veins of right lower extremity (principal); R60.9 Edema, unspecified; L03.90 Cellulitis, unspecified
CPT/HCPCS: 93971

== ENCOUNTER 2024-02-09 13:02 | Outpatient (POV) | payer MEDICARE, SELFPAY | END 2024-02-09 23:59 | disposition home or self-care (01) | LOC: SC 13:02 | PROVIDERS: Visit Provider Specialist/Technologist | DX: Z00.00 Encounter for general adult medical examination without abnormal findings (principal) ==

== ENCOUNTER 2025-04-03 10:27 | Outpatient (CLI) | payer MEDICARE, SELFPAY ==
--- NOTE | 2025-04-03 10:30 | MM_ITS ---
PROCEDURE INFORMATION: Exam: MG Bilateral Screening 3D Mammography Exam date and time: 04/03/2025 10:34 AM Age: 65 years old Clinical indication: Screening examination TECHNIQUE: Imaging protocol: Bilateral Screening tomosynthesis and 2D mammography including computer-aided detection (CAD) when performed. COMPARISON: 1. MG MM DIG SCREENING MAMM BI W/CAD 11/30/2023 4:49 PM 2. MG MM DIG SCREENING MAMM BI W/CAD 02/17/2022 8:33 AM FINDINGS: MAMMOGRAPHY: Breast composition: There are scattered areas of fibroglandular density. Mass: 0.4 cm mass in the middle third of the left upper outer quadrant best seen on tomographic images Architectural distortion: None. Calcifications: No suspicious calcifications. Asymmetric density: None. Skin thickening: None. Axillary adenopathy: None. IMPRESSION: Patient to be recalled for spot compression views of the left breast in the CC and MLO projections, a full 90 degree lateral view, and left breast ultrasound for further evaluation of a left breast mass. ASSESSMENT: BI-RADS Category 0: Incomplete- Need Additional Imaging Evaluation
== END 2025-04-03 23:59 | disposition home or self-care (01) ==
LOC: RAD 10:28
PROVIDERS: PCP Nurse Practitioner; Visit Provider Nurse Practitioner
DX: Z12.31 Encounter for screening mammogram for malignant neoplasm of breast (principal); N63.21 Unspecified lump in the left breast, upper outer quadrant; R92.323 Mammographic fibroglandular density, bilateral breasts
CPT/HCPCS: 77063; 77067

== ENCOUNTER 2025-04-09 15:07 | Outpatient (CLI) | payer MEDICARE, SELFPAY ==
--- NOTE | 2025-04-09 15:14 | MM_ITS ---
PROCEDURE INFORMATION: Exam: MG Left Diagnostic Breast Tomosynthesis Exam date and time: 04/09/2025 3:13 PM Age: 65 years old Clinical indication: Callback for a left breast mass. TECHNIQUE: Imaging protocol: Left Diagnostic tomosynthesis and 2D mammography including computer-aided detection (CAD) when performed. Unilateral or bilateral exam. COMPARISON: MG MM DIG SCREENING MAMM BI W/CAD 04/03/2025 10:34 AM FINDINGS: MAMMOGRAPHY: Breast composition: There are scattered areas of fibroglandular density. Breast mammogram findings: There is a circumscribed slightly lobulated 0.6 cm mass in the left lower outer quadrant, approximate 3-4 o'clock axis, 7 cm from the nipple. Further evaluation with ultrasound is recommended. No suspicious calcifications or architectural distortion. IMPRESSION: Mass in the left breast 3-4 o'clock axis, 7 cm from the nipple warrants further evaluation with a targeted breast ultrasound. ASSESSMENT: BI-RADS Category 0: Incomplete- Need Additional Imaging Evaluation.
== END 2025-04-09 23:59 | disposition home or self-care (01) ==
LOC: RAD 15:09
PROVIDERS: PCP Nurse Practitioner; Visit Provider Nurse Practitioner
DX: N63.23 Unspecified lump in the left breast, lower outer quadrant (principal); R92.322 Mammographic fibroglandular density, left breast
CPT/HCPCS: 77061; 77065; G0279

== ENCOUNTER 2025-04-18 08:31 | Outpatient (CLI) | payer MEDICARE, SELFPAY ==
--- NOTE | 2025-04-18 08:36 | US_ITS ---
PROCEDURE INFORMATION: Exam: US Left Breast, Complete Exam date and time: 04/18/2025 8:41 AM Age: 65 years old Clinical indication: Abnormal findings on imaging; Left; Additional info: Abnormal mamm TECHNIQUE: Imaging protocol: Complete ultrasound of all four quadrants of the left breast and the retroareolar regions, including ultrasound of the axilla when performed. COMPARISON: US BREAST LT COMPLETE 03/10/2021 3:38 PM FINDINGS: ULTRASOUND: Breast ultrasound findings: Ultrasound of the left breast at the 3-4 o'clock axis demonstrates a complicated cyst at 3 o'clock, 4 cm from the nipple that measures 0.6 by 0.5 x 0.3 cm. This correlates with the mammogram finding and is considered probably benign. No suspicious shadowing or distortion. No axillary adenopathy. IMPRESSION: Probably benign complicated cyst in the left breast that correlates to the mammogram finding. A follow-up left breast diagnostic mammogram and ultrasound in 6 months is recommended for close surveillance. ASSESSMENT: BI-RADS Category 3: Probably benign.
== END 2025-04-18 23:59 | disposition home or self-care (01) ==
PROVIDERS: PCP Nurse Practitioner; Visit Provider Nurse Practitioner
DX: N60.02 Solitary cyst of left breast
CPT/HCPCS: 76641